=== PATIENT | male | born 1990 | race Hispanic/Latino ===

== ENCOUNTER 2024-04-09 15:36 | Emergency (ER) | payer MEDICAID, SELFPAY ==
[2024-04-09 15:38] VITALS: BP 141/93; PULSE 91; RESP 18; TEMP 35.9; O2SAT 97; BMI 36.4
--- NOTE | 2024-04-09 15:43 | NURSING ---
NO OLD EKGS
[2024-04-09] MEDS: Ondansetron 4 MG/2 ML Vial IV (16:26)
[2024-04-09] MEDS: Morphine 4 MG/ML Syringe IV (16:26)
[2024-04-09] MEDS: Ketorolac 15 MG/ML Vial IV (16:26)
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
[2024-04-09 17:29] VITALS: BP 132/85; PULSE 74; RESP 16; TEMP 36.8; O2SAT 98
== END 2024-04-09 17:30 | disposition home or self-care (01) ==
PROVIDERS: Emergency Provider Emergency Medicine; Visit Provider Emergency Medicine
DX: S20.212A Contusion of left front wall of thorax, initial encounter (principal); S40.812A Abrasion of left upper arm, initial encounter; S60.511A Abrasion of right hand, initial encounter; S60.811A Abrasion of right wrist, initial encounter; S80.811A Abrasion, right lower leg, initial encounter; S80.812A Abrasion, left lower leg, initial encounter; V49.50XA Passenger injured in collision with unspecified motor vehicles in traffic accident, initial encounter
CPT/HCPCS: 71046; 96374; 96375; 99285; A4216; J2405

== ENCOUNTER 2024-04-17 20:04 | Emergency (ER) | payer MEDICAID, SELFPAY ==
[2024-04-17 20:05] VITALS: BP 142/84; PULSE 82; RESP 16; TEMP 36.9; O2SAT 96; BMI 37.3
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
--- NOTE | 2024-04-17 20:45 | RAD_ITS ---
INDICATION: RIB INJURY, INCREASED SOB/PAIN EXAMINATION/TECHNIQUE: X-RAY - XR Ribs Unilateral W/ PA Chest Min 3 Views COMPARISON: Prior study dated: FINDINGS: SOFT TISSUES: No soft tissue swelling or gas. BONES: Questionable acute nondisplaced fracture of the left lateral 11th rib. No sclerotic or destructive changes observed. VISUALIZED LUNGS: Clear. No pneumothorax. RAD/Ribs Uni Min 3V w/PA Chest IMPRESSION: Questionable acute nondisplaced fracture of the left lateral 11th rib. Consider chest CT. Electronically Signed: Armand Lockhart MD at 21:50 EDT ,
[2024-04-17] MEDS: oxyCODONE 5 MG Tablet PO (20:51)
[2024-04-17] MEDS: Ibuprofen 600 MG Tablet PO (20:51)
[2024-04-17 22:25] VITALS: BP 139/77; PULSE 81; RESP 16; TEMP 36.6; O2SAT 99
== END 2024-04-17 22:25 | disposition home or self-care (01) ==
PROVIDERS: Emergency Provider Emergency Medicine; Visit Provider Emergency Medicine
DX: S20.219A Contusion of unspecified front wall of thorax, initial encounter (principal); V49.9XXA Car occupant (driver) (passenger) injured in unspecified traffic accident, initial encounter
CPT/HCPCS: 71101; 99282